=== PATIENT | female | born 1975 | race Caucasian/White ===

== ENCOUNTER 2016-08-17 06:38 | Emergency (ER) | payer OTHER ==
[~2016-08-17] VITALS: Ht 162.6 cm; Wt 100.0 kg
[~2016-08-17 06:38] MED LIST: GLIP10 PO; LISI-660 PO; METF500T4 PO; PRAV40 PO
[2016-08-17 06:52] LABS: GLUCOSE,POINT OF CARE 146 MG/DL (70-110)
[2016-08-17] MEDS ORDERED: OxyCODONE HCL/ACETAMINOPHEN 5-325 MG TABLET PO ONE (07:30)
[2016-08-17] MEDS ORDERED: ONDANSETRON HCL 4 MG TABLET PO ONE (07:30)
[2016-08-17 08:00] VITALS: BP 132/85
[2016-08-18 11:24] LABS: HSV 1 TYPE SPECIFIC IGG <0.91 index (0.00-0.90); HSV TYPE-2 SPECIFIC IGG <0.91 index (0.00-0.90)
== END 2016-08-17 08:18 | disposition home or self-care (01) ==
LOC: EMS 06:43
DX: L08.9 Local infection of the skin and subcutaneous tissue, unspecified (principal); E11.9 Type 2 diabetes mellitus without complications; E78.00 Pure hypercholesterolemia, unspecified; I10 Essential (primary) hypertension
CPT/HCPCS: 36415; 82962; 86695 ×2; 99283; Q0162

== ENCOUNTER 2023-04-19 18:33 | Emergency (ER) | payer OTHER ==
[~2023-04-19] VITALS: Ht 162.6 cm; Wt 85.0 kg
[~2023-04-19 18:33] MED LIST changes: -GLIP10 PO; -LISI-660 PO; +LISI-892 PO; +METF-1211 PO; -METF500T4 PO; -PRAV40 PO; +PRAV40TA4 PO
[2023-04-19 18:46] VITALS: TEMP 98.1
[2023-04-19 21:34] VITALS: BP 150/78; PULSE 76; RESP 17
== END 2023-04-19 21:35 | disposition home or self-care (01) ==
LOC: EMS 18:35
DX: S63.92XA Sprain of unspecified part of left wrist and hand, initial encounter (principal); E11.9 Type 2 diabetes mellitus without complications; E78.00 Pure hypercholesterolemia, unspecified; I10 Essential (primary) hypertension; X58.XXXA Exposure to other specified factors, initial encounter; Y93.89 Activity, other specified; Y92.89 Other specified places as the place of occurrence of the external cause; Y99.8 Other external cause status
CPT/HCPCS: 99283